=== PATIENT | male | born 1985 | race Caucasian/White ===

== ENCOUNTER 2019-07-23 06:54 | Emergency (ER) | payer MEDICAID, SELFPAY ==
[2019-07-23 06:55] VITALS: BP 130/104; PULSE 110; RESP 16; TEMP 35.7; O2SAT 96; BMI 28.3
[2019-07-23 06:59] VITALS: BP 131/101; PULSE 121; RESP 16; TEMP 36.1; O2SAT 96
--- NOTE | 2019-07-23 07:25 | ED.DCSUM_ITS ---
- ER Visit Summary Date of Service: 07/23/19 Chief Complaint: Right upper quadrant abdominal pain History of Present Illness: The patient is a 34 M past medical history of 4 prior hernia repairs 3 on the right groin and one on the left. With mesh. Patient states she is had intermittent abdominal pain for weeks if not longer. Not associated with eating. He denies any trouble urinating or moving his bowels. No dysuria, hematuria or melena. No fever. He denies any nausea, vomiting or diarrhea. He denies any weight loss. States she has had some intermittent right upper quadrant pain. Nothing specifically makes it better or worse. He denies any back pain. Physical Examination: Well-appearing young male. No distress. Vital signs are stable and afebrile. H EENT exam unremarkable. Posterior pharynx moist and pink. No erythema or exudate. No trouble swallowing or breathing. Neck nontender. No lymphadenopathy. Lungs are clear to auscultation bilaterally. No rales, rhonchi or wheezing. Heart is regular rhythm his initial vital signs he was tachycardic at 121 of my exam his heart rates around the 100-105. No murmur. Abdomen is soft. He is very minimal right upper quadrant tenderness. No rebound, guarding or rigidity. No Fisher sign. No McBurney's point tenderness. Left side of his abdomen is unremarkable. His prior hernia repairs are well closed and there is no signs of acute hernias at this time. Patient is moving all 4 extremities. Calves are nontender without edema. Back is nontender. Neurologically he is awake and alert. Test Results: CBC White count 6. Hemoglobin 16. No bands. Chemistries normal normal creatinine and gap. Liver enzymes unremarkable direct bilirubin 1.1. Emergency Department Course and Treatment: Young male with nondescript intermittent abdominal pain. Has a benign exam. Labs are being obtained. He is being given IV Toradol for discomfort. Repeat exam at 0 9:08 AM patient is doing well. Abdomen is benign. He is going to follow-up with a local general surgeon to have his hernias rechecked. But at this time he has no Fisher sign. His abdomen is really not tender. And there is no signs of an incarcerated or strangulated hernia. Treatment Plan: Follow-up with Dr. Luiz Bucio. Disposition: Discharge Impression: Acute intermittent right upper quadrant abdominal pain of uncertain etiology History of multiple hernia repair surgeries This note was generated with [employer] dictation software. It may contain incorrect words, spelling, and punctuation that were not noted in review of the chart prior to signing
[2019-07-23] MEDS: Ketorolac 30 MG/ML Syringe IV (07:28)
[2019-07-23 07:37] LABS: Absolute Lymphocyte Count 1.96 X10^3/uL (0.83-4.51); Absolute Neutrophil Count 4.2 X10^3/uL (2.0-7.7); Basophil# 0.04 X10^3/uL; Basophil% 0.6 % (0-1); Eosinophil# 0.24 X10^3/uL; Eosinophils% 3.5 % (0-5); Hematocrit 48.3 % (40-54); Hemoglobin 16.9 g/dL (13.0-16.5); Lymphocyte # 1.96 X10^3/ul (4.0); Lymphocyte % 28.4 % (19-41); Mean Corpuscular Hgb 32.4 pg (27.0-32.0); Mean Corpuscular Volume 92.5 fL (80-94); Mean Platelet Vol. 9.1 fl (6.2-12.0); Monocyte# 0.46 X10^3/uL; Monocyte% 6.7 % (0-10); NRBC Flagged by Analyzer 0 % (0-5); Neutrophil # 4.18 X10^3/uL (2.7-7.7); Neutrophil % 60.5 % (47-70); Platelet Count 273 K/mm3 (150-450); RBC Distribution Width CV 11.4 % (11.6-14.6); RBC Distribution Width SD 38.8 fl (35.1-43.9); Red Blood Count 5.22 M/mm3 (4.6-6.2); White Blood Count 6.9 K/mm3 (4.4-11.0)
[2019-07-23 07:51] LABS: AST(SGOT) 15 U/L (15-37); Alanine Aminotransfer ALT/SGPT 32 U/L (16-61); Albumin, Serum 3.7 g/dL (3.2-5.0); Alkaline Phosphatase 109 U/L (45-117); Anion Gap 7 (5-15); BUN 10 mg/dL (7-18); BUN/Creat Ratio 9.3 RATIO (10-20); Calcium,Total 8.6 mg/dL (8.5-10.1); Chloride 105 mmol/L (98-107); Creatinine, Serum 1.08 mg/dL (0.70-1.30); EST Glomerular Filtration Rate 84 mL/min (>60); Est Glom Filt Rate - Afr Amer 102 mL/min (>60); Estimated Creatinine Clearance 85.42 ml/min; Globulin 4.5 g/dL (2.2-4.2); Glucose 88 mg/dL (74-106); Potassium 3.6 mmol/L (3.5-5.1); Protein, Total 8.2 g/dL (6.4-8.2); Sodium Level 138 mmol/L (136-145)
--- NOTE | 2019-07-23 09:11 | ED.DEP ---
ED Disposition - Plan for ED Patient: Disposition: Home or Assisted Living Instructions: ABDOMINAL PAIN, Unkown Cause, (Male) Referrals: Luiz Bucio MD [STAFF PHYSICIAN] - 1 Week Additional Instructions: This pain may or may not be secondary to your prior hernia repair surgery. Follow-up with Dr. Luiz Bucio for further evaluation of your hernias. Your labs were unremarkable today. Tylenol and/or Motrin for pain
[2019-07-23 09:27] VITALS: BP 108/72; PULSE 94; RESP 16; TEMP 36.4; O2SAT 99
== END 2019-07-23 09:29 | disposition home or self-care (01) ==
PROVIDERS: Emergency Provider Emergency Medicine; Family Provider Family Medicine; PCP Family Medicine
DX: R10.11 Right upper quadrant pain (principal); Z72.0 Tobacco use
CPT/HCPCS: 80048; 80076; 85025; 96374; 99283

== ENCOUNTER 2022-10-16 10:46 | Emergency (ER) | payer BC, MEDICAID, SELFPAY ==
[2022-10-16 10:47] VITALS: BP 123/87; PULSE 117; RESP 16; TEMP 36.4; O2SAT 94; BMI 29.0
--- NOTE | 2022-10-16 11:34 | RAD_ITS ---
STUDY: X-RAY CHEST REASON FOR EXAM: Male, 37 years old. Cough TECHNIQUE: PA and lateral views of the chest. COMPARISON: None. FINDINGS: The lungs are clear and expanded. Scattered calcified granulomas. There is no demonstrated pleural abnormality. Normal size heart. Normal mediastinum and anup. Normal visualized pulmonary arteries. Normal visualized aortic arch and descending thoracic aorta. Normal visualized thoracic spine. Healed left sixth rib fracture. There is no demonstrated abnormality of the visualized soft tissue structures of the upper abdomen. RAD/Chest PA and Lateral IMPRESSION: No acute abnormality is seen. Electronically Signed: Warren Nam MD at 12:39 EST ,
--- NOTE | 2022-10-16 11:35 | EDS_ITS ---
HPI HPI - URI History of Present Illness Chief Complaint: Cough Informant: patient Onset/Context/Timing Onset: Month(s) (1) Context: Gradual Onset Quality: Burning Location: Chest Worsened by: - (Nothing) Relieved by: - (Nothing) Associated Symptoms Associated Symptoms: Positive for Nasal Congestion, Headache, Sinus Pressure, Nausea, Vomiting, Chest Pain and Nonproductive cough; Negative for Myalgias, Diarrhea, Shortness of Breath, Hemoptysis or Productive Cough Narrative Narrative: Patient presents with cough and congestion that has been getting worse over the past month. Patient states he has started having nausea and vomiting today. Patient states he has been unable keep anything down. Patient admits to a cough but denies any sputum production. Patient states he has some burning pain in his chest with coughing. Patient states he has had some rhinorrhea and nasal congestion. Patient also admits to some sinus pressure. Patient also admits to a sinus headache. Patient denies any fevers or chills. ROS ROS ED Constitutional Constitutional ED: Denies chills or fever(s) Eyes Eyes: Denies blurry vision or change in vision ENT ENT ED: Reports rhinorrhea; Denies sore throat Cardiovascular Cardiovascular: Reports chest pain; Denies palpitations Respiratory/Chest Respiratory/Chest: Reports cough; Denies dyspnea Gastrointestinal Gastrointestinal: Reports nausea and vomiting Genitourinary Genitourinary ED: Denies dysuria or hematuria Musculoskeletal Musculoskeletal: Reports back pain; Denies neck pain Integumentary Denies abscess or rash Neurologic Neurologic: Reports headache(s); Denies weakness Allergic/Immunologic Allergic/Immunologic ED: Denies mouth swelling or urticaria PFSH PFSH Medical History no medical history no medical history Home Medications ondansetron 4 mg disintegrating tablet 4 mg PO Q8H PRN PRN Nausea #10 tabs 10/16/22 [Rx Last Taken Unknown] Allergy/AdvReac Type Severity Reaction Status Date / Time Penicillins [PCN] Allergy Nausea Verified 10/16/22 10:47 Surgical History (Updated 10/16/22 @ 11:[address] Davey Albright DO) History of herniorrhaphy Social History Smoking Status: Current every day smoker tobacco type: cigarettes EXAM Physical Exam Const Vital Signs: 10/16/22 10:47 10/16/22 11:38 10/16/22 11:58 Temperature 97.6 F L Temperature Source Temporal Pulse Rate 117 H 107 H Respiratory Rate 16 18 Respiratory Effort Normal Non-Labored Respiratory Depth Normal Respiratory Pattern Normal Normal Blood Pressure 123/87 H Blood Pressure Mean 99 Pulse Ox 94 Oxygen Delivery Method Room Air Positive well nourished and well developed General Appearance ED: well developed HEENT Reports moist mucous membranes Neck supple and no JVD Resp normal respiratory effort and clear to auscultation bilaterally Cardio regular rate, regular rhythm and no murmurs GI normal to inspection, nondistended, normoactive bowel sounds and non-tender Palpation: soft Extremity normal to inspection General Extremety ED: Negative for edema or tenderness General Extremity: Negative for edema Neuro oriented x3, CN's II-XII intact bilaterally and no sensory deficits noted Sensorium / Orientation: alert Motor Exam: strength 5/5 throughout Psych mental status grossly normal Skin no rashes or lesions noted MDM MDM MDM Narrative Medical decision making narrative: Patient was given IV fluids and Zofran here. Patient was given a DuoNeb aerosol here. CBC was within normal limits. Comprehensive metabolic profile showed a slightly elevated bilirubin of 1.2 but was otherwise within normal limits. PA and lateral chest x-ray was obtained. There are 2 views. On my interpretation, lung miranda are clear. There is normal cardiac silhouette. Bony thorax is normal. There is no acute process noted. Radiologist also interpreted the x- ray and agrees. COVID-19 rapid antigen was obtained and was negative. Influenza A and influenza B antigens were obtained and were negative. Patient was advised of his findings. Patient was given a prescription for Zofran. Patient was instructed to drink plenty of fluids. Patient was instructed to take Tylenol or ibuprofen as needed for any fever or pain. Patient was instructed to follow-up with his primary care physician in 5 to 7 days. Patient understood and was agreeable with the plan. All questions were answered. Lab Data Attestation: I reviewed the patient's lab results. Labs: Laboratory Results - last 24 hr 10/16/22 10/16/22 11:55 11:55 WBC 5.5 RBC 4.97 Hgb 16.1 Hct 44.9 MCV 90.3 MCH 32.4 H MCHC 35.9 RDW Std Deviation 39.2 RDW Coeff of Matilda 11.9 Plt Count 241 MPV 8.8 Immature Gran % (Auto) 0.400 Neut % (Auto) 62.2 Lymph % (Auto) 26.4 [place] % (Auto) 9.7 Eos % (Auto) 1.1 Baso % (Auto) 0.2 Absolute Neuts (auto) 3.4 Absolute Lymphs (auto) 1.44 Nucleated RBC % 0 Sodium 134 L Potassium 3.3 L Chloride 98 Carbon Dioxide 30.0 Anion Gap 6 BUN 15 Creatinine 1.09 Estim Creat Clear Calc 85.36 Est GFR (MDRD) Af Amer 99 Est GFR (MDRD) Non-Af 82 BUN/Creatinine Ratio 13.8 Glucose 103 Calcium 8.7 Total Bilirubin 1.20 H AST 32 ALT 54 Alkaline Phosphatase 114 Total Protein 8.5 H Albumin 3.6 Globulin 4.9 H Albumin/Globulin Ratio 0.7 L Radiography Diagnostic Testing: Clinical Impression(s) from Imaging Studies Chest X-Ray 10/16/22 11:34 IMPRESSION: No acute abnormality is seen. Electronically Signed: Warren Nam MD at 12:39 EST , Discharge Plan Triage Chief Complaint: Cough ED Provider: Davey Albright Dx/Rx/DC Orders Clinical Impression: Viral illness, Nausea and vomiting Instructions: ED Viral Syndrome (Adult), ED Vomiting (Adult) Prescriptions: New ondansetron [ondansetron] 4 mg tablet,disintegrating 4 mg PO Q8H PRN PRN (Reason: Nausea) Qty: 10 0RF Primary Care Provider: Hudson Figueroa Referrals: Hudson Figueroa DO [Primary Care Provider] - 5-7 Days Disposition Disposition: Home, Self Care
[2022-10-16 11:38] VITALS: PULSE 107; RESP 18
[2022-10-16] MEDS: Ipratropium/Albuterol Sulfate 3 ML AMPUL.NEB INHALATION (11:40)
[2022-10-16] MEDS: 0.9% Normal Saline 1,000 ML 1000 ML IV (11:52)
[2022-10-16] MEDS: Ondansetron 4 MG/2 ML Vial IV (11:53)
[2022-10-16 12:12] LABS: Absolute Lymphocyte Count 1.44 X10^3/uL (0.83-4.51); Absolute Neutrophil Count 3.4 X10^3/uL (2.0-7.7); Basophil# 0.01 X10^3/uL; Basophil% 0.2 % (0-1); Eosinophil# 0.06 X10^3/uL; Eosinophils% 1.1 % (0-5); Hematocrit 44.9 % (40-54); Hemoglobin 16.1 g/dL (13.0-16.5); Lymphocyte # 1.44 X10^3/ul (0.83-4.51); Lymphocyte % 26.4 % (19-41); Mean Corp Hgb Conc 35.9 g/dL (32-36); Mean Corpuscular Hgb 32.4 pg (27.0-32.0); Mean Corpuscular Volume 90.3 fL (80-94); Mean Platelet Vol. 8.8 fl (6.2-12.0); Monocyte# 0.53 X10^3/uL; Monocyte% 9.7 % (0-10); NRBC Flagged by Analyzer 0 % (0-5); Neutrophil # 3.39 X10^3/uL (2.7-7.7); Neutrophil % 62.2 % (47-70); Platelet Count 241 K/mm3 (150-450); RBC Distribution Width CV 11.9 % (11.6-14.6); RBC Distribution Width SD 39.2 fl (35.1-43.9); Red Blood Count 4.97 M/mm3 (4.6-6.2); White Blood Count 5.5 K/mm3 (4.4-11.0)
[2022-10-16 12:17] LABS: ALB/GLOB Ratio 0.7 RATIO (0.9-2.4); AST(SGOT) 32 U/L (15-37); Alanine Aminotransfer ALT/SGPT 54 U/L (16-61); Albumin, Serum 3.6 g/dL (3.2-5.0); Alkaline Phosphatase 114 U/L (45-117); Anion Gap 6 (5-15); BUN 15 mg/dL (7-18); BUN/Creat Ratio 13.8 RATIO (10-20); Calcium,Total 8.7 mg/dL (8.5-10.1); Chloride 98 mmol/L (98-107); Creatinine, Serum 1.09 mg/dL (0.70-1.30); EST Glomerular Filtration Rate 82 mL/min (>60); Est Glom Filt Rate - Afr Amer 99 mL/min (>60); Estimated Creatinine Clearance 85.36 ml/min; Globulin 4.9 g/dL (2.2-4.2); Glucose 103 mg/dL (74-106); Potassium 3.3 mmol/L (3.5-5.1); Protein, Total 8.5 g/dL (6.4-8.2); Sodium Level 134 mmol/L (136-145)
== END 2022-10-16 13:52 | disposition home or self-care (01) ==
PROVIDERS: Emergency Provider Emergency Medicine; PCP Family Medicine; Visit Provider Emergency Medicine
DX: B34.9 Viral infection, unspecified (principal); R11.2 Nausea with vomiting, unspecified; R51.9 Headache, unspecified; F17.210 Nicotine dependence, cigarettes, uncomplicated; R07.9 Chest pain, unspecified; Z20.822 Contact with and (suspected) exposure to COVID-19
CPT/HCPCS: 71046; 80053; 85025; 87428; 94640; 96361; 96374; 99283; J7030; A4216; J2405